=== PATIENT | male | born 1955 | race African-American/Black ===

== ENCOUNTER 2017-08-05 13:23 | Emergency (ER) | payer OTHER ==
[~2017-08-05] VITALS: Ht 180.3 cm; Wt 69.8 kg
--- NOTE | ~2017-08-05 | EKG ---
[address] [place] [address] ELECTROCARDIOGRAM REPORT Name: JOSEPH MELGAR Room #: DEP MICHELLE Bean#: [id number] Admission: 08/05/17 Attend Phys: Discharge: 08/05/17 Date of : 55 Report #: [id number] THIS REPORT FOR: //name// [facility] ED Test Date: 2017-08-05 Test Time: 13:29:56 Pat Name: JOSEPH MELGAR Department: Room: Gender: Loss Claim Clerk: : 1955 Requested By: Guanako Kincaid Order Number: [id number] MD: Ajith Henao Measurements Intervals [place] Rate: 87 P: 81 DC: 143 QRS: -77 QRSD: 138 T: 70 QT: 420 QTc: 506 Interpretive Statements Sinus rhythm RBBB and LAFB No previous ECG available for comparison Electronically Signed On 08-06-2017 8:09:13 CDT by Ajith Henao [email or web address] <ELECTRONICALLY SIGNED> By: Ajith Henao MD, [facility] 08/06/17 0809 1329 1329 Ajith Henao MD, FACC /EPI
[2017-08-05 13:50] LABS: ABSOLUTE NEUTROPHILS 2.3 thou/uL (1.4-8.2); BASOPHILS 0.4 % (0.0-2.0); EOSINOPHILS 1.2 % (0.0-3.0); HEMATOCRIT 35.6 % (42.0-52.0); HEMOGLOBIN 11.6 gm/dL (14.0-18.0); LYMPHOCYTES 36.7 % (24.0-44.0); MCH 25.6 pg (26.0-34.0); MCHC 32.7 g/dL (28.0-37.0); MCV 78.4 fL (80.0-100.0); MONOCYTES 5.1 % (1.0-8.0); PLATELET COUNT 240 thou/uL (150-400); POLYS 56.6 % (36.0-66.0); RBC 4.55 mil/uL (4.50-6.00); RDW 20.7 % (10.5-14.5); WBC 4.1 thou/uL (4.0-11.0)
[2017-08-05 13:51] LABS: MANUAL DIFF NO
[2017-08-05] MEDS ORDERED: CARVEDILOL12.5 MG PO (13:54)
[2017-08-05] MEDS ORDERED: PRAVACHOL20 MG PO (13:54)
[2017-08-05] MEDS ORDERED: ASPIR 8181 MG PO (13:55)
[2017-08-05] MEDS ORDERED: LISINOPRIL20 MG PO (13:55)
[2017-08-05] MEDS ORDERED: NORVASC2.5 MG PO (13:55)
[2017-08-05 14:08] LABS: ANION GAP 18 mmol/L (7-16); BUN 20 mg/dL (7-18); CALCIUM 8.2 mg/dL (8.5-10.1); CHLORIDE 105 mmol/L (98-107); CO2 19 mmol/L (21-32); GLUCOSE 85 mg/dL (74-106); POTASSIUM 3.4 mmol/L (3.5-5.1); SODIUM 142 mmol/L (136-145)
[2017-08-05 14:13] LABS: ALBUMIN 3.6 g/dL (3.4-5.0); ALKALINE PHOSPHATASE 72 U/L (46-116); SGOT 69 U/L (15-37); SGPT 48 U/L (30-65); TOTAL BILIRUBIN 0.7 mg/dL (<0.1-1.0); TROPONIN-I < 0.04 ng/mL (<0.04-0.07)
[2017-08-05 17:23] VITALS: BP 122/66
== END 2017-08-05 17:29 | disposition left against medical advice (07) ==
LOC: ER 13:23
PROVIDERS: Physician Assistant
DX: R07.9 Chest pain, unspecified (principal); R10.84 Generalized abdominal pain; F17.210 Nicotine dependence, cigarettes, uncomplicated; F10.99 Alcohol use, unspecified with unspecified alcohol-induced disorder; Z95.5 Presence of coronary angioplasty implant and graft; Z53.21 Procedure and treatment not carried out due to patient leaving prior to being seen by health care provider

== ENCOUNTER 2019-11-24 22:10 | Emergency (ER) | payer OTHER ==
[~2019-11-24] VITALS: Ht 180.3 cm; Wt 63.5 kg
[~2019-11-24 22:10] MED LIST: ASPIR 8181 MG PO; CARVEDILOL12.5 MG PO; LISINOPRIL20 MG PO; NORVASC2.5 MG PO; PRAVACHOL20 MG PO
[2019-11-25 00:19] VITALS: BP 123/91
== END 2019-11-25 00:19 | disposition home or self-care (01) ==
LOC: ER 22:10
DX: F10.129 Alcohol abuse with intoxication, unspecified (principal); F17.210 Nicotine dependence, cigarettes, uncomplicated

== ENCOUNTER 2020-09-28 21:54 | Emergency (ER) | payer OTHER ==
[~2020-09-28] VITALS: Ht 170.2 cm; Wt 68.0 kg
[2020-09-29 04:29] VITALS: BP 113/65
== END 2020-09-29 04:45 | disposition home or self-care (01) ==
LOC: ER 21:54
DX: F10.129 Alcohol abuse with intoxication, unspecified (principal); F17.210 Nicotine dependence, cigarettes, uncomplicated; Z79.899 Other long term (current) drug therapy; Z79.82 Long term (current) use of aspirin; Y90.9 Presence of alcohol in blood, level not specified

== ENCOUNTER 2020-10-13 10:36 | Emergency (ER) | payer OTHER ==
[~2020-10-13] VITALS: Ht 162.6 cm; Wt 77.1 kg
[2020-10-13 10:38] VITALS: BP 159/84
== END 2020-10-13 12:26 | disposition home or self-care (01) ==
LOC: ER 10:36
DX: F10.129 Alcohol abuse with intoxication, unspecified (principal); F17.210 Nicotine dependence, cigarettes, uncomplicated; Z79.82 Long term (current) use of aspirin; Z79.899 Other long term (current) drug therapy; Y90.9 Presence of alcohol in blood, level not specified

== ENCOUNTER 2020-10-16 10:21 | Emergency (ER) | payer OTHER ==
[~2020-10-16] VITALS: Ht 172.7 cm; Wt 74.8 kg
--- NOTE | ~2020-10-16 | EMS ---
[address] [address] EMS Patient Care Report Name: JOSEPH MELGAR Room #: REG MICHELLE Bean#: [id number] Admission: 10/16/20 Attend Phys: Discharge: Date of : 55 Report #: [id number] THIS REPORT FOR: //name// Report Transmitted: 10/16/2020 09:49 EMS Care Summary [place], [place]/[facility] Incident [id number] @ 10/16/2020 09:51 Incident Location [address] [place] [id number] Patient JOSEPH MELGAR Male, 64 Years 1955 Patient Address [address] [place], [place] [id number] Patient History Coronary Artery Bypass Graft (CABG),Alcohol Abuse, Patient Allergies No known allergies, Patient Medications Unknown, Chief Complaint CHEST PAIN/SHORTNESS OF BREATH Disposition Transported No Lights/Turon Dispatch Reason Overdose/Poisoning/Ingestion Transported To [facility] Narrative DISPATCHED TO [place] FOR AN OVERDOSE AT THE [place]. ARRIVED ON SCENE WITH POLICE TO FIND MALE PATIENT SITTING ON BOX IN FRONT OF THE [place]AS [place]. HE SAID HE HAD BEEN DRINKING THIS MORNING AND THAT HE IS NOW HAVING SHORTNESS OF BREATH AND CHEST PAIN. HE WALKED TO THE AMBULANCE FOR FURTHER EVALUATION. PATIENT WAS [address] [address] EMS Patient Care Report Name: JOSEPH MELGAR Room #: REG MICHELLE Bean#: [id number] Admission: 10/16/20 Attend Phys: Discharge: Date of : 55 Report #: [id number] SEATED ON THE COT, AND HIS VITALS WERE OBTAINED. HE THEN REFUSED TO ALLOW EMS TO DO AN EKG AND REFUSED TO ANSWER ANY FURTHER QUESTIONS. HE SAID THAT THE HOSPITAL CAN DO ALL OF THAT, AND TO JUST TAKE HIM THERE. PATIENT DID NOT EXIBIT ANY OBVIOUS SIGNS OF SHORTNESS OF BREATH OR PAIN. PATIENT WAS TRANSPORTED TO THE HOSPITAL WITH VITALS MONITORED. UPON ARRIVAL AT THE HOSPITAL PATIENT WAS MOVED INTO ED ROOM 7 ON THE COT AND ASSISTED IN MOVING OVER TO THE HOSPITAL BED. PATIENT CARE WAS TURNED OVER TO ED NURSING STAFF. Initial Vitals @10:04P: 71,R: 16,BP: 151/85,Pain: 4/10,GCS: 15,Glucose: 117,SpO2: 92,Revised Trauma: 12, @10:10P: 84,R: 16,BP: 132/77,Pain: 4/10,GCS: 15,SpO2: 90,Revised Trauma: 12, Assessments @10:00MENTAL:Person Oriented,Time Oriented,Event Oriented,Place Oriented,SKIN:Cold,HEENT:Head/Face: No Abnormalities,Neck/Airway: No Abnormalities,LUNG SOUNDS:General: No Abnormalities,Left Upper: No Abnormalities,Right Upper: No Abnormalities,Left Lower: No Abnormalities,Right Lower: No Abnormalities,ABDOMEN:General: No Abnormalities,Left Upper: No Abnormalities,Right Upper: No Abnormalities,Left Lower: No Abnormalities,Right Lower: No Abnormalities,PELVIS//GI:No Abnormalities,EXTREMITIES:Capillary Refill: Right Upper: 3 Sec,Left Arm: No Abnormalities,Right Arm: No Abnormalities,Left Leg: No Abnormalities,Right Leg: No Abnormalities,PULSE:Radial: 2+ Normal,NEURO:Slurred Speech, Impression Chest Pain / Discomfort Procedures @10:00ALS AssessmentResponse: UnchangedSucceeded Timeline 09:51,Call Received 09:51,Dispatch Notified 09:51,Dispatched 09:53,En Route 09:59,On Scene 10:00,At Patient 10:00,ALS Assessment,Response: UnchangedSucceeded, 10:04,BP: 151/85 M,PULSE: 71,RR: 16 R,SPO2: 92 Ox,ETCO2: ,B,PAIN: 4,GCS: 15, 10:09,Depart Scene 10:10,BP: 132/77 M,PULSE: 84,RR: 16 R,SPO2: 90 Ox,ETCO2: ,BG: ,PAIN: 4,GCS: 15, 10:16,At Destination 10:27,Call Closed [address] [address] EMS Patient Care Report Name: JOSEPH MELGAR Room #: REG [place].#: [id number] Admission: 10/16/20 Attend Phys: Discharge: Date of : 55 Report #: [id number] Disclaimer v1.1 Copyright 2020 [employer] This EMS Care Summary contains data elements from the applicable legal record (which may be displayed differently). It is designed to provide pertinent information for the following purposes: continuity of care, clinical quality, and state data reporting. The complete legal record is available to ED staff and administrators of the receiving hospital in [facility]'s Patient Tracker. All data is provided "as is."
--- NOTE | ~2020-10-16 | EKG ---
[facility] [place] [address] ELECTROCARDIOGRAM REPORT Name: JOSEPH MELGAR [id number] Admission: 10/16/20 Attend Phys: Discharge: 10/16/20 Date of : 55 Report #: [id number] THIS REPORT FOR: cc: NOLA - Cate family physician/PCP NOLA - Cate family physician/PCP Vera Gamez MD ~ THIS REPORT FOR: //name// [facility] ED Test Date: 2020-10-16 Test Time: 10:25:04 Pat Name: JOSEPH MELGAR Department: Room: Gender: M Clinical Trial Data Manager: JAMIE : 1955 Requested By: José Miguel Dave Order Number: [id number] MD: Measurements Intervals [place] Rate: 81 P: 71 [place]: 128 QRS: -63 QRSD: 136 T: 75 QT: 399 QTc: 464 Interpretive Statements Sinus rhythm RBBB and LAFB Compared to ECG 08/05/2017 13:29:56 No significant changes [email or web address] By: 1025 1025 Epiphany Epiphany, /EPI
[2020-10-16 10:22] VITALS: BP 116/62
== END 2020-10-16 10:56 | disposition left against medical advice (07) ==
LOC: ER 10:21
DX: F10.920 Alcohol use, unspecified with intoxication, uncomplicated (principal); R07.89 Other chest pain; Z53.21 Procedure and treatment not carried out due to patient leaving prior to being seen by health care provider

== ENCOUNTER 2020-10-31 19:43 | Emergency (ER) | payer OTHER ==
[~2020-10-31] VITALS: Ht 175.3 cm; Wt 63.5 kg
[2020-11-01 01:17] VITALS: BP 112/78
== END 2020-11-01 00:45 | disposition home or self-care (01) ==
LOC: ER 19:43
DX: F10.129 Alcohol abuse with intoxication, unspecified (principal); F17.210 Nicotine dependence, cigarettes, uncomplicated; Z79.899 Other long term (current) drug therapy; Z79.82 Long term (current) use of aspirin; Z59.0 Homelessness; Y90.9 Presence of alcohol in blood, level not specified

== ENCOUNTER 2020-11-01 08:57 | Emergency (ER) | payer OTHER ==
[~2020-11-01] VITALS: Ht 180.3 cm; Wt 58.5 kg
[2020-11-01 12:25] VITALS: BP 112/71
--- NOTE | 2020-11-01 15:57 | EKG ---
[facility] [place] [address] [place] [address] ELECTROCARDIOGRAM REPORT Name: JOSEPH MELGAR Room #: YE Bean#: [id number] Admission: 11/01/20 Attend Phys: Discharge: 11/01/20 Date of : 55 Report #: [id number] <ELECTRONICALLY SIGNED> By: Tavo Thorne MD, FACC 11/01/20 1557 0900 0900 Tavo Thorne MD, FACC /EPI
== END 2020-11-01 12:25 | disposition home or self-care (01) ==
LOC: ER 08:57
DX: R07.89 Other chest pain (principal); F10.920 Alcohol use, unspecified with intoxication, uncomplicated; R06.02 Shortness of breath; I10 Essential (primary) hypertension; F17.210 Nicotine dependence, cigarettes, uncomplicated; Z98.61 Coronary angioplasty status; Z79.899 Other long term (current) drug therapy; Z79.82 Long term (current) use of aspirin

== ENCOUNTER 2021-02-08 23:52 | Emergency (ER) | payer OTHER ==
[~2021-02-08] VITALS: Ht 180.3 cm; Wt 63.5 kg
[2021-02-09 01:35] VITALS: BP 132/72
== END 2021-02-09 01:37 | disposition home or self-care (01) ==
LOC: ER 23:52
DX: F10.10 Alcohol abuse, uncomplicated (principal); F17.210 Nicotine dependence, cigarettes, uncomplicated; Z59.0 Homelessness; Z79.82 Long term (current) use of aspirin; Z79.899 Other long term (current) drug therapy; Y90.9 Presence of alcohol in blood, level not specified